=== PATIENT | male | born 1970 | race Caucasian/White ===

== ENCOUNTER 2023-01-04 18:06 | Emergency (ER) | payer OTHER ==
[~2023-01-04] VITALS: Ht 167.6 cm; Wt 88.0 kg
[2023-01-04] MEDS ORDERED: LIDOCAINE HCL/PF 1% 10 MG/ML 5ML VIAL INFIL ONE (19:45)
[2023-01-04] MEDS ORDERED: BACITRACIN ZINC OINT UDPKT TOP ONE (20:00)
[2023-01-04] MEDS ORDERED: CEPHALEXIN 250MG CAPSULE PO ONE ×2 (20:15→20:30)
[2023-01-04] MEDS ORDERED: CEPH500C2 MT (20:24)
[2023-01-04 21:15] VITALS: BP 149/93
== END 2023-01-04 21:17 | disposition home or self-care (01) ==
LOC: ER 18:06
DX: M79.89 Other specified soft tissue disorders (principal)
CPT/HCPCS: 10060; 99283